=== PATIENT | female | born 1980 | race Two or more races ===

== ENCOUNTER 2022-10-16 20:59 | Inpatient (IN) | payer OTHER ==
[~2022-10-16] VITALS: Ht 152.4 cm; Wt 72.6 kg
[2022-10-16] MEDS ORDERED: LOSARTAN POTASS50 MG PO (21:41)
== END 2022-10-19 16:37 | disposition home or self-care (01) | DRG 419 ==
LOC: ER 20:59 → SEC-K 10-17 14:29 → MEDI 10-17 14:29
PROVIDERS: Specialist; ADMIT Internal Medicine; ATTEND Internal Medicine
PROC: 0FT44ZZ Resection of Gallbladder, Percutaneous Endoscopic Approach (ICD-10-PCS; principal; 2022-10-17 17:30)
DX: K80.10 Calculus of gallbladder with chronic cholecystitis without obstruction (principal); R10.11 Right upper quadrant pain; I10 Essential (primary) hypertension; Z20.822 Contact with and (suspected) exposure to COVID-19

== ENCOUNTER 2022-10-26 20:06 | Emergency (ER) | payer OTHER ==
[~2022-10-26] VITALS: Ht 152.4 cm; Wt 104.8 kg
[~2022-10-26 20:06] MED LIST: LOSARTAN POTASS50 MG PO
[2022-10-26] MEDS ORDERED: CIPRO500 MG (21:15)
[2022-10-27] MEDS ORDERED: PEPCID AC20 MG PO (07:04)
[2022-10-27] MEDS ORDERED: INTESTINEX680 M1 PO (07:04)
[2022-10-27] MEDS ORDERED: DICY20TA PO (07:04)
[2022-10-27] MEDS ORDERED: AMOX-CLAV 875-1 EACH PO (07:04)
[2022-10-27] MEDS ORDERED: DICLOFENAC POTA50 MG PO (07:09)
== END 2022-10-27 07:16 | disposition home or self-care (01) ==
LOC: ER 20:06
DX: R10.31 Right lower quadrant pain (principal); R10.13 Epigastric pain; I10 Essential (primary) hypertension

== ENCOUNTER 2024-09-26 11:49 | Inpatient (IN) | payer OTHER ==
[~2024-09-26] VITALS: Ht 157.5 cm; Wt 96.6 kg
[~2024-09-26 11:49] MED LIST changes: +AMOX-CLAV 875-1 EACH PO; +CIPRO500 MG; +DICLOFENAC POTA50 MG PO; +DICY20TA PO; +INTESTINEX680 M1 PO; +PEPCID AC20 MG PO
[2024-09-26] MEDS ORDERED: HYZAAR 100-12.1 EACH (12:26)
[2024-09-26] MEDS ORDERED: FAMOtidine 10 MG/ML (4ML VIAL) IV ONE (12:45)
[2024-09-26] MEDS ORDERED: METRONIDAZOLE/SODIUM CHLORIDE 500 MG/100 ML PIGGYBACK IV ONE ×2 (12:45→14:45)
[2024-09-26] MEDS ORDERED: CHOLESTYRAMINE/ASPARTAME LIGHT 4 G/PKT PACKET PO ONE (12:45)
[2024-09-26] MEDS ORDERED: 0.9 % SODIUM CHLORIDE 1,000 ML IV ONE (12:45)
[2024-09-26] MEDS ORDERED: ONDANSETRON HCL 2 MG/ML VIAL IV ONE (12:45)
[2024-09-26 14:00] LABS: HEMATOCRIT 37.1 % (36.0-45.00); HEMOGLOBIN 12.4 g/dL (12.0-15.00); MEAN CELL VOLUME 78.5 fL (80.00-100.00); MEAN CORPUSCULAR HEMOGLOBIN 26.2 pg (27.00-32.0); MEAN CORPUSCULAR HGB CONC 33.3 g/dl (32.0-36.0); PLATELET COUNT 330 K/uL (150-450); RED BLOOD COUNT 4.72 M/uL (4.00-6.00); RED CELL DISTRIBUTION WIDTH 15.8 % (11.5-14.5)
[2024-09-26 14:18] LABS: ALBUMIN 3.9 gm/dL (3.4-5.0); BILIRUBIN TOTAL 0.45 mg/dL (0.3-1.2); CALCIUM 8.7 mg/dL (8.5-10.1); CREATININE SERUM 1.19 mg/dL (0.55-1.02); GFR 49.51; GLOBULINA 3.9 G/DL (2.4-3.5); POTASSIUM 3.76 mEq/L (3.5-5.1); TOTAL PROTEIN 7.8 gm/dL (6.4-8.2)
[2024-09-26] MEDS ORDERED: CIPROFLOXACIN IN 5 % DEXTROSE 400 MG/200 ML PIGGYBAG IV ONE (14:45)
[2024-09-26] MEDS ORDERED: BUTALB/ACETAMINOPHEN/CAFFEINE 1 TAB TABLET PO ONE (15:15)
[2024-09-26] MEDS ORDERED: METRONIDAZOLE/SODIUM CHLORIDE 100 ML IV SCH (20:46)
[2024-09-26] MEDS ORDERED: ACETAMINOPHEN 500 MG GEL..CAP PO PRN (21:00)
[2024-09-26] MEDS ORDERED: MEPERIDINE HCL/PF 25 MG/ML VIAL IM PRN (21:00)
[2024-09-26] MEDS ORDERED: ONDANSETRON HCL 4 MG in DEXTROSE 5 % IN WATER 50 ML IV PRN (21:00)
[2024-09-26] MEDS ORDERED: ENALAPRILAT DIHYDRATE 1.25 MG/ML VIAL IV PRN (21:00)
[2024-09-26] MEDS ORDERED: CIPROFLOXACIN IN 5 % DEXTROSE 200 ML IV SCH (21:00)
[2024-09-26] MEDS ORDERED: RINGERS SOLUTION,LACTATED 1,000 ML IV SCH (21:00)
[2024-09-27] MEDS ORDERED: HYOSCYAMINE SULFATE 0.125 MG TAB.SUBL SL SCH (01:00)
[2024-09-27 01:15] VITALS: BP 103/65; O2SAT 98
[2024-09-27] MEDS ORDERED: PIPERACILLIN/TAZOBACTAM SODIUM 3.375 GM in 0.9 % SODIUM CHLORIDE 100 ML IV SCH (06:40)
[2024-09-27 07:38] LABS: HEMATOCRIT 35.4 % (36.0-45.00); MEAN CELL VOLUME 77.6 fL (80.00-100.00); MEAN CORPUSCULAR HEMOGLOBIN 26.3 pg (27.00-32.0); MEAN CORPUSCULAR HGB CONC 33.9 g/dl (32.0-36.0); PLATELET COUNT 269 K/uL (150-450); RED BLOOD COUNT 4.56 M/uL (4.00-6.00); RED CELL DISTRIBUTION WIDTH 15.8 % (11.5-14.5)
[2024-09-27 07:54] LABS: INR 1.14; PARTIAL THROMBOPLASTIN TIME 30.2 SECONDS (22.0-34.0); PROTHROMBIN TIME 12.3 SECONDS (9.0-11.5)
[2024-09-27 08:04] LABS: ALBUMIN 3.5 gm/dL (3.4-5.0); BILIRUBIN TOTAL 0.46 mg/dL (0.3-1.2); BILIRUBIN,CONJUGATED 0.13 mg/dL (0.0-0.2); BILIRUBIN,UNCONJUGATED 0.33 mg/dL (0.0-0.6); CALCIUM 8.6 mg/dL (8.5-10.1); CHOL HDL RATIO 4.1 (0-5.0); CREATININE SERUM 0.92 mg/dL (0.55-1.02); GFR 66.62; GLOBULINA 3.5 G/DL (2.4-3.5); POTASSIUM 4.07 mEq/L (3.5-5.1)
[2024-09-27 08:06] LABS: ERYTHROCYTE SEDIMENTATION RATE 43 mm/hr
[2024-09-27 08:17] LABS: C-REACTIVE PROTEIN 5.93 MG/DL (0.00-0.29)
[2024-09-27 08:48] LABS: PH,URINE 5.5 (5.0-8.0); URINE APPEARANCE Clear; URINE BILIRRUBIN Negative (NEGATIVE); URINE BLOOD Negative; URINE COLOR Yellow; URINE GLUCOSE Negative (NEGATIVE); URINE KETONE Negative (NEGATIVE); URINE LEUKOCYTE Trace; URINE NITRATE Negative; URINE PROTEIN 30 (NEGATIVE); URINE UROBILINOGEN 0.2 E.U./dl
[2024-09-27 08:51] LABS: URINE BACTERIA 539.2 uL (0.0-1933); URINE EPITHELIAL CELLS 31.5 uL (0.0-38.8); URINE RBC 8.2 uL (0.0-20.8); URINE WBC 15.2 uL (0.0-23.2)
[2024-09-27 08:53] LABS: URINE CAST 0.45 uL (0.0-1.40)
[2024-09-27] MEDS ORDERED: PANTOPRAZOLE SODIUM 40 MG in 0.9 % SODIUM CHLORIDE 8 ML IV PUSH SCH (09:00)
[2024-09-27] MEDS ORDERED: ENOXAPARIN SODIUM 40 MG/0.4 ML SYRINGE SUBCUTANEO SCH (09:00)
[2024-09-27 09:04] LABS: ob POSITIVE (NEGATIVE)
[2024-09-27] MEDS ORDERED: LACTOBACILLUS ACIDOPHILUS 1 CAP CAP PO SCH (09:12)
[2024-09-27 09:25] VITALS: BP 115/78; O2SAT 98
[2024-09-27 16:16] VITALS: BP 116/77; O2SAT 99
[2024-09-28 00:49] VITALS: BP 106/70; O2SAT 98
[2024-09-28 04:00] VITALS: BP 110/70; O2SAT 98
[2024-09-28 09:22] VITALS: BP 106/65; O2SAT 99
[2024-09-28] MEDS ORDERED: LACTOBACILLUS ACIDOPHILUS 1 CAP CAP PO SCH (13:00)
[2024-09-28 18:24] VITALS: BP 144/88
[2024-09-29 00:49] VITALS: BP 110/60; O2SAT 97
[2024-09-29 10:03] VITALS: BP 114/75; O2SAT 100
== END 2024-09-29 15:46 | disposition home or self-care (01) | DRG 392 ==
LOC: ER 11:51 → SURG 21:07 → SEC-K 21:07 → SURG 09-28 00:01 → MEDJ 09-28 00:59
PROVIDERS: General Practice; ADMIT Internal Medicine; ATTEND Internal Medicine
PROC: BW21YZZ Computerized Tomography (CT Scan) of Abdomen and Pelvis using Other Contrast (ICD-10-PCS; principal; 2024-09-26)
DX: K52.9 Noninfective gastroenteritis and colitis, unspecified (principal); E86.0 Dehydration; I10 Essential (primary) hypertension; E66.9 Obesity, unspecified

== ENCOUNTER 2025-01-06 20:08 | Emergency (ER) | payer OTHER ==
[~2025-01-06] VITALS: Ht 152.4 cm; Wt 98.4 kg
[~2025-01-06 20:08] MED LIST changes: +HYZAAR 100-12.1 EACH
[2025-01-06] MEDS ORDERED: 0.9 % SODIUM CHLORIDE 1,000 ML IV ONE (21:15)
[2025-01-06] MEDS ORDERED: FAMOtidine 10 MG/ML (4ML VIAL) IV ONE (21:15)
[2025-01-06] MEDS ORDERED: ONDANSETRON HCL 2 MG/ML VIAL IV ONE (21:15)
[2025-01-06] MEDS ORDERED: FAMOTIDINE/PF 20 MG/2 ML VIAL ONE (21:31)
[2025-01-06] MEDS ORDERED: ONDANSETRON HCL 2 MG/ML VIAL ONE (21:31)
[2025-01-06 21:54] LABS: HEMATOCRIT 39.2 % (36.0-45.00); HEMOGLOBIN 12.9 g/dL (12.0-15.00); MEAN CELL VOLUME 77.7 fL (80.00-100.00); MEAN CORPUSCULAR HEMOGLOBIN 25.5 pg (27.00-32.0); MEAN CORPUSCULAR HGB CONC 32.8 g/dl (32.0-36.0); PLATELET COUNT 426 K/uL (150-450); RED BLOOD COUNT 5.04 M/uL (4.00-6.00); RED CELL DISTRIBUTION WIDTH 15.9 % (11.5-14.5)
[2025-01-06 22:06] LABS: INR 1.08; PARTIAL THROMBOPLASTIN TIME 28.9 SECONDS (22.0-34.0); PROTHROMBIN TIME 11.7 SECONDS (9.0-11.5)
[2025-01-06 22:10] LABS: BILIRUBIN TOTAL 0.72 mg/dL (0.3-1.2); CALCIUM 9.1 mg/dL (8.5-10.1); CREATININE SERUM 0.72 mg/dL (0.55-1.02); GFR 87.99; GLOBULINA 4.5 G/DL (2.4-3.5); POTASSIUM 3.37 mEq/L (3.5-5.1); TOTAL PROTEIN 8.5 gm/dL (6.4-8.2)
[2025-01-06 22:11] LABS: PH,URINE 5.5 (5.0-8.0); URINE APPEARANCE Cloudy; URINE BILIRRUBIN Small (NEGATIVE); URINE BLOOD Large; URINE COLOR Dark Yellow; URINE GLUCOSE Negative (NEGATIVE); URINE KETONE Trace (NEGATIVE); URINE LEUKOCYTE Trace; URINE NITRATE Negative; URINE UROBILINOGEN 0.2 E.U./dl
[2025-01-06 22:15] LABS: URINE BACTERIA 3839.6 uL (0.0-1933); URINE CAST 3.38 uL (0.0-1.40); URINE EPITHELIAL CELLS 120.4 uL (0.0-38.8); URINE RBC 156.5 uL (0.0-20.8); URINE WBC 92.6 uL (0.0-23.2)
[2025-01-06 22:26] LABS: URINE MUCUS MODERATE; URINE PROTEIN 300 (NEGATIVE)
[2025-01-07] MEDS ORDERED: PIPERACILLIN/TAZOBACTAM SODIUM 3.375 GM VIAL IV ONE ×2 (00:30→01:27)
== END 2025-01-07 04:08 | disposition home or self-care (01) ==
LOC: ER 20:11
PROVIDERS: General Practice
DX: K29.70 Gastritis, unspecified, without bleeding (principal); I10 Essential (primary) hypertension; D72.829 Elevated white blood cell count, unspecified